=== PATIENT | female | born 1955 ===

== ENCOUNTER 2022-09-19 19:23 | Emergency (ER) | payer BC, MEDICAID ==
--- NOTE | 2022-09-19 20:18 | ED Physician Documentation ---
History of Present Illness - Stated complaint Stated Complaint: FELL DOWN STAIRS, HIT HEAD - Chief complaint Chief Complaint: Trauma Hd/Nk - Additonal information Additional information: 66-year-old female was referred to the emergency department from the walk-in clinic for evaluation of headache, left shoulder pain and low back pain. Reportedly was descending stairs 48 hours ago with some bags. One of the bags got caught and she turned around to retrieve it when she fell backwards. She thought she was at the end of the steps but is unsure. She struck her head on hard ground. She does not remember falling and is unsure if she lost consciousness. No nausea or vomiting. She immediately noticed that she had pain in her left shoulder as well as her low back. She is not anticoagulated. No focal neurodeficits. Walk-in clinic referred her to the ER for evaluation of the headache. Review of Systems Constitutional: denies: Fever, Chills Musculoskeletal: reports: Joint pain Neurologic: reports: Headache, Head injury. denies: Generalized weakness, Focal weakness, Numbness, Difficulty speaking, Near syncope, Confused, LOC PD PAST MEDICAL HISTORY - Past Medical History Past Medical History: Yes Cardiovascular: None Respiratory: None Neuro: None Endocrine/Autoimmune: None GI: Other CASING MIXER: None : None HEENT: None Psych: None Musculoskeletal: None Derm: None Other Past Medical History: PRIMARY BILIARY DISORDER.. - Past Surgical History Past Surgical History: Yes General: Cholecystectomy HEENT: Tonsil/Adenoidectomy - Present Medications Home Medications: Ambulatory Orders Medication Instructions Recorded Confirmed oxyCODONE [Roxicodone] 5 mg PO TID PRN #14 tablet 09/19/22 - Allergies Allergies/Adverse Reactions: Allergies Allergy/AdvReac Type Severity Reaction Status Date / Time amoxicillin AdvReac Rash Verified 09/19/22 19:46 - Social History Does the pt smoke?: No Smoking Status: Never smoker Does the pt drink ETOH?: No Does the pt have substance abuse?: No - Immunizations Immunizations are current?: Yes - POLST Patient has POLST: No PD ED PE NORMAL - General General: Alert and oriented X 3, No acute distress, Well developed/nourished - HEENT HEENT: EOMI, Ears normal, Other (Negative for raccoon eyes, hemotympanums or woods sign). No: Atraumatic (Hematoma on the left occiput.) - Neck Neck: Supple, no meningeal sign, No adenopathy, Other (Full range of motion of the cervical spine in all planes without tenderness elicited. No midline spinous tenderness) - Cardiac Cardiac: RRR, No murmur - Respiratory Respiratory: No respiratory distress, Clear bilaterally - Abdomen Abdomen: Normal bowel sounds, Soft, Non tender, Non distended - Back Back: No spinal TTP (Mild lower lumbar L3-4 and 5 tenderness without ecchymosis or abrasion noted.) - Derm Derm: Normal color, Warm and dry, No rash - Extremities Extremities: No: Normal ROM s pain (Tenderness of the left shoulder at the proximal humeral region. Full range of motion. Gross motor strength preserved at the shoulder elbow and wrist) - Neuro Neuro: Alert and oriented X 3, alterations workroom clerk 2-12 intact, No motor deficit, Normal speech Eye Opening: Spontaneous Motor: Obeys Commands Verbal: Oriented GCS Score: 15 Results - Vitals Vitals: Vital Signs - 24 hr 09/19/22 09/19/22 09/19/22 19:38 19:50 20:04 Temperature 36.5 C Heart Rate 70 70 Respiratory 17 16 18 Rate Blood Pressure 174/90 H 181/94 H O2 Saturation 99 98 09/19/22 09/19/22 22:00 22:37 Temperature Heart Rate 70 66 Respiratory 18 Rate Blood Pressure 186/95 H 189/104 H O2 Saturation 100 Oxygen O2 Source Room air - Rads (name of study) left shoulder xr Relevant Findings:: EMP independent interpretation of test (no acute fracture or dislocation) PD Medical Decision Making - ED course Complexity details: re-evaluated patient, considered differential ED course: 66-year-old female was referred to the emergency department for evaluation of headache left shoulder pain and low back pain after fall downstairs 2 days ago. She does not remember the full events but is unsure if she lost consciousness. She is not anticoagulated. She presents with no focal deficits. She does have a large contusion on her posterior scalp. Gait even age and mechanism a CT of the head and neck was completed. I also ordered imaging of the lumbar spine to rule out acute fractures. She did have some pain in her left shoulder though no reduced range of motion. My interpretation of the x-ray of the shoulder is that there is no acute fractures. 2200: I am signing out pt to my nighttime colleague Dr. Elmore to f/u on CT reads. Per my initial evaluation, I do no see any acute fx of finding of ICH. Assuming no worrisome abnormalities pt will be stable for dc home with the usual emergent return precautions. I am prescribing a short course of short-acting opioid pain medication for this patient. I have reviewed the patients DATA INPUT CLERK and no concerning findings were noted. I have discussed that the opioids are for short term therapy only, and will not be refilled from the ED. Departure - Departure Disposition: ED Elope Clinical Impression: Fall down stairs Qualifiers: Encounter type: initial encounter Qualified Code(s): W10.8XXA - Fall (on) (from) other stairs and steps, initial encounter Contusion of occipital region of scalp Qualifiers: Encounter type: initial encounter Qualified Code(s): S00.03XA - Contusion of scalp, initial encounter Contusion of left shoulder Qualifiers: Encounter type: initial encounter Qualified Code(s): S40.012A - Contusion of left shoulder, initial encounter Low back pain Qualifiers: Chronicity: acute Back pain laterality: midline Sciatica presence: without sciatica Qualified Code(s): M54.50 - Low back pain, unspecified Condition: Stable Record reviewed to determine appropriate education?: Yes Prescriptions: oxyCODONE [Roxicodone] 5 mg PO TID PRN #14 tablet PRN Reason: Pain Comments: I am prescribing a short course of narcotic pain medication for you. These are potentially dangerous and addictive medications that should be used carefully. These medications may constipate you. Take an onpa-fvn-ntsujos stool softener (docusate) twice daily with plenty of water while taking these medications. If you go 24 hours without a bowel movement, take ucoq-[id number]-[id number] miralax, per package instructions. Do not drink or drive while taking these medications. If you received narcotic or sedating medications while in the emergency department, do not drive for 24 hours. Store this medication in a safe, secure place and out of reach of children. It is a violation of federal law to give or sell this medication to another person or to use in a manner other than prescribed. The ED will not refill narcotic prescriptions, including prescriptions lost or stolen. To dispose of unwanted medications: 1. [facility] at [address] in [place] has a medication drop box. They accept prescription medications (in pill form) Friday through Friday 9:00 a.m. to 5:00 p.m. 2. The [facility] [employer] accepts prescription medications (in pill form only) for disposal year round. Call for more information. 3. Contact the [facility] for the next [facility] sponsored prescription drug collection event. , [phone], or [phone]; Note that many narcotic pain relievers also contain Tylenol/acetaminophen. Please ensure that your total dose of acetaminophen from all sources does not exceed 3 g (3000 mg) per day. Discharge Date/Time: 09/20/22 00:02
[2022-09-19 22:38] VITALS: BP 189/104
--- NOTE | 2022-09-20 00:01 | ED Physician Documentation ---
ED Addendum - Addendum Addendum: 09/20/22 00:00 Patient awaiting results of scans and x-rays which did not reveal any evidence of fracture has eloped. The reads were eventually available at 2350.
--- NOTE | 2022-09-20 07:08 | CT Report ---
PROCEDURE: LUMBAR SPINE WO INDICATIONS: lbp after fall TECHNIQUE: Noncontrast 3 mm thick sections acquired from the T12 level to the sacrum. Sagittal and coronal refo rmats were constructed. For radiation dose reduction, the following was used: automated exposure co ntrol, adjustment of mA and/or kV according to patient size. COMPARISON: None. FINDINGS: Image quality: Excellent. Bones: There is preserved bony alignment. No fractures identified. Specifically, no acute vertebral body compression fractures. No suspicious lytic or blastic bony lesions. No pars defects. Central spinal caliber is of normal overall caliber. There is multilevel mild to moderate degenerative disc disease with mild multilevel spinal canal narrowing throughout the lumbar spine. Mild facet joint art hropathy is demonstrated within the lower MR spine. Moderate right neuroforaminal narrowing demonstra mariposa at L4-L5. Soft tissues: No retroperitoneal masses or hematomas. Visualized aorta is normal in caliber. IMPRESSION: 1. No acute fracture identified. 2. Multilevel degenerative changes with mild multilevel spinal canal narrowing throughout the lumbar spine. 3. Moderate right neuroforaminal narrowing at L4-5. Reviewed by: Fernando Zarate MD on 09/19/2022 9:34 PM PDT Approved by: Fernando Zarate MD on 09/19/2022 9:34 PM PDT Station ID: [id number]
--- NOTE | 2022-09-20 07:08 | CT Report ---
PROCEDURE: CERVICAL SPINE WO INDICATIONS: fall down stairs TECHNIQUE: Noncontrast 3 mm thick sections acquired from the skull base to the T4 level. Sagittal and coronal r eformats were then constructed. For radiation dose reduction, the following was used: automated exp osure control, adjustment of mA and/or kV according to patient size. COMPARISON: None. FINDINGS: Image quality: Excellent. Bones: No fractures or subluxation. There is mild straightening of the cervical lordosis. Multilevel degenerative disc disease and facet arthropathy demonstrated throughout the cervical spine.. Visual ized superior ribs are intact. Soft tissues: Prevertebral soft tissues are normal in thickness. No paravertebral hematomas. No ap ical pneumothoraces. IMPRESSION: 1. No fracture or subluxation. Reviewed by: Fernando Zarate MD on 09/19/2022 9:29 PM PDT Approved by: Fernando Zarate MD on 09/19/2022 9:29 PM PDT Station ID: [id number]
--- NOTE | 2022-09-20 07:08 | XRAY Report ---
PROCEDURE: Shoulder 3 View LT INDICATIONS: pain after fall TECHNIQUE: 3 views of the shoulder were acquired. COMPARISON: None. FINDINGS: Bones: No fractures or dislocations. There is mild acromioclavicular joint degeneration. No suspicio us bony lesions. Visualized ribs appear intact. Soft tissues: No suspicious soft tissue calcifications. IMPRESSION: 1. No fracture or dislocation. Reviewed by: Fernando Zarate MD on 09/19/2022 10:25 PM PDT Approved by: Fernando Zarate MD on 09/19/2022 10:25 PM PDT Station ID: [id number]
--- NOTE | 2022-09-20 07:08 | CT Report ---
PROCEDURE: HEAD WO INDICATIONS: fell down stairs TECHNIQUE: Noncontrast 4.5 mm thick angled axial sections acquired from the foramen magnum to the vertex. For r adiation dose reduction, the following was used: automated exposure control, adjustment of mA and/or kV according to patient size. COMPARISON: None. FINDINGS: Image quality: Excellent. CSF spaces: Basal cisterns are patent. No extra-axial fluid collections. Ventricles are normal in size and shape. Brain: No intracranial hemorrhage, mass, or mass effect. Garg-white matter interface appears preser domo. Skull and face: Calvarium and visualized facial bones are intact, without suspicious lesions. Sinuses: Visualized sinuses and mastoids are clear. IMPRESSION: 1. No acute intracranial abnormality. Reviewed by: Fernando Zarate MD on 09/19/2022 9:26 PM PDT Approved by: Fernando Zarate MD on 09/19/2022 9:26 PM PDT Station ID: [id number]
== END 2022-09-20 00:02 | disposition left against medical advice (07) ==
LOC: ED 19:23
DX: S00.03XA Contusion of scalp, initial encounter (principal); S40.012A Contusion of left shoulder, initial encounter; M54.50 Low back pain, unspecified; W10.9XXA Fall (on) (from) unspecified stairs and steps, initial encounter
CPT/HCPCS: 99284